=== PATIENT | female | born 2000 | race Caucasian/White ===

== ENCOUNTER 2022-06-13 13:33 | Inpatient (IN) ==
[2022-06-15] MEDS ORDERED: OXYTOCIN 30 UNITS/500 ML BAG IV PRN ×3 (08:49→17:32)
[2022-06-15] MEDS ORDERED: LIDOCAINE 1% LOCAL 20 ML VIAL INFIL PRN (08:49)
--- NOTE | 2022-06-15 08:49 | History & Physical Report ---
Date of Service June 15, 2022 Assessment & Plan (1) 40 weeks gestation of : Plan: Admit, routine labs, third trimester HIV and syphilis ordered Misoprostol 25 mcg sublingual every 4 hours Plan to AROM after, epidural if patient request Anticipate spontaneous vaginal delivery (2) Anxiety and depression: Plan: Well-controlled on Wellbutrin and Lexapro (3) Asthma affecting in third trimester: Plan: Albuterol inhaler as needed (4) ADHD: (5) Marijuana use during : Plan: Last use over 30 days, urine toxicology ordered today (6) Abnormal ultrasound: Plan: Mild urinary tract dilation bilaterally 4 mm Peds to follow Admission and Anticipated Discharge Date Admission Date: June 15, 2022 History of Present Illness Chief Complaint: IOL Primary Care Provider: Edson Carlisle MD Patient is a 21-year-old G1, P0 at 40 weeks and 2 days dated by last menstrual period consistent with 11-week ultrasound who presents to labor and delivery for induction of labor for postdates. Upon presentation she denies leaking of fluid or vaginal bleeding. +ctx. Notes good movement. Denies headache, blurry vision, right upper quadrant epigastric pain. Otherwise feeling well Patient is manages the [facility]. She has a history of asthma, albuterol inhaler as needed, anxiety and depression currently on Le xapro and Wellbutrin. Also ADHD, was on Adderall early during . She is currently on Lexapro 10 mg daily, Wellbutrin 75 mg daily. She also has a use of medical marijuana during . Has noted used for over 30 days per patient Patient also saw maternal- medicine for bilateral pyelectasis left 4.9 mm and right 4 mm. Repeat ultrasound showed mild urinary tract dilation at 4 mm bilaterally, when she saw [facility]. Allergies Allergy/AdvReac Type Severity Reaction Status Date / Time No Known Allergies Allergy Unverified 09/12/11 11:49 Home Medications Medication Instructions Recorded Confirmed Type ONDANSETRON (ZOFRAN ODT) 4 mg sublingual Q6 PRN ##20 07/17/12 Rx Patient History Social History Smoking Status: Never smoker Second Hand Exposure: Yes (Grandparents); Tobacco Cessation Education Requested by Patient: No Hx Alcohol Use: No Hx Substance Use: No (Medical marijuana card) Preferred Language: Senegalese Communication Ability: Effective Flight Information Expediter Required: No Beliefs That Will Affect Care: None marital status: Single Current Living Situation Comment: Lives with mother and Binh Feels Safe at Home: Yes Safety Concerns: Feels Safe At This Time Assistive Devices: None OB History [employer] L[employer] SC[employer]ER History See record Review of Systems All systems reviewed & are unremarkable except as noted in HPI & below Physical Exam Constitutional: WD/WN, vitals as above Respiratory: normal respiratory effort, lungs clear to auscultation Cardiovascular: RRR, no murmur, no edema Gastrointestinal (Abdomen): normal bowel sounds, soft, nontender, no hepatosplenomegaly gravid Genitourinary: no vaginal lesions, no adnexal mass OB Exam Abdomen: + heart tones and + vertex cx: 2.5/60/-3, soft anterior Results & Data Vital Signs (Past 12 Hours) Vital Signs Temp Pulse Resp BP 06/15/22 08:10 36.8 C 98 H 16 136/88 06/15/22 07:56 98 H 136/88 Monitoring External Monitor Baseline 130, moderate variability, positive accelerations no decelerations, category 1 tracing Tocodynamometer Irritability
[2022-06-15] MEDS: miSOPROStoL 25 MCG TAB SL SCH ×2 (09:14→13:17)
[2022-06-15 09:42] LABS: Hematocrit (blood only) 36.2 % (37.0-47.0); Hemoglobin 12.2 g/dl (12.0-16.0); Mean Corpuscular Hgb Conc 33.7 g/dL (32.0-36.0); Mean Platelet Volume 11.6 fL (9.4-12.4); Platelet Count 319 K/uL (130-400); RDW Coefficient of Variation 13.7 % (11.5-14.5); RDW Standard Deviation 42.1 fL (36.4-46.3); Red Blood Count 4.21 M/uL (4.20-5.40); White Blood Count 15.01 K/ul (4.8-10.8)
[2022-06-15 10:39] LABS: Amphetamines+Metham, Urine Neg (Neg); Barbiturates, Urine Neg (Neg); Benzodiazepine, Urine Neg (Neg); Cocaine, Urine Neg (Neg); MDMA (Ecstacy), Urine Neg (Neg); Methadone, Urine Neg (Neg); Opiate, Urine Neg (Neg); Phencyclidine, Urine Neg (Neg)
[2022-06-15] MEDS: LACTATED RINGER'S 1,000 ML IV PRN ×2 (13:41→15:17)
[2022-06-15] MEDS ORDERED: BUPIVACAINE 0.25% PF 30 ML VIAL ONE (13:44)
[2022-06-15] MEDS ORDERED: SODIUM CHLORIDE 0.9% PF INJ 10 ML VIAL ONE (13:44)
[2022-06-15] MEDS ORDERED: LIDOCAINE 2%/EPINEPHRINE 1:200,000 20 ML PF ONE (13:44)
[2022-06-15] MEDS ORDERED: fentaNYL citrate PF 100 MCG/2 ML VIAL ONE (13:44)
[2022-06-15] MEDS ORDERED: ePHEDrine sulfate 50 MG/ML AMP ONE (13:44)
[2022-06-15] MEDS ORDERED: fentaNYL 2MCG/ML ROPIVACAINE 1.25MG/ML 100 ML BAG EPI ONE (13:45)
--- NOTE | 2022-06-15 13:45 | Labor Progress Brief Note ---
Date of Service June 15, 2022 Subjective Patient is starting to get uncomfortable with contractions, she recently received second dose of Cytotec 25 mcg sublingual Assessment & Plan (1) 40 weeks gestation of : Plan: Misoprostol 25 mcg x2 doses Plan to start oxytocin 1 hour after Cytotec, if contractions space out. epidural if patient request Anticipate spontaneous vaginal delivery (2) Anxiety and depression: Plan: Well-controlled on Wellbutrin and Lexapro (3) Asthma affecting in third trimester: Plan: Albuterol inhaler as needed (4) ADHD: (5) Marijuana use during : Plan: Last use over 30 days, urine toxicology ordered today (6) Abnormal ultrasound: Plan: Mild urinary tract dilation bilaterally 4 mm Peds to follow Admission and Anticipated Discharge Date Admission Date: June 15, 2022 Physical Exam Genitourinary: heart tracing: Baseline 130, moderate variability, positive accelerations, 1 variable decelerations, category 1 tracing Tocometer: Contractions every 2 minutes Cervix: 3-4/90/-3 AROM performed with scant clear fluid, IUPC was placed in anticipation of starting oxytocin, no cord felt, no complications Results & Data Vital Signs (Past 12 Hours) Vital Signs Temp Pulse Resp BP 06/15/22 08:10 36.8 C 98 H 16 136/88 06/15/22 13:31 83 135/80 06/15/22 12:39 73 128/89 06/15/22 11:49 65 125/89 06/15/22 08:00 18 06/15/22 08:00 36.8 C 18 06/15/22 07:56 98 H 136/88
[2022-06-15] MEDS ORDERED: ePHEDrine sulfate 50 MG/ML AMP IV PRN (14:09)
[2022-06-15] MEDS ORDERED: NALBUPHINE HCL INJ 10 MG/ML AMP IV PRN (14:09)
[2022-06-15] MEDS ORDERED: fentaNYL 2MCG/ML ROPIVACAINE 1.25MG/ML 100 ML BAG EPI PRN (14:09)
[2022-06-15] MEDS ORDERED: PROMETHAZINE HCL 6.25 MG in SODIUM CHLORIDE 0.9% 50 ML IV PRN (14:09)
[2022-06-15] MEDS ORDERED: diphenhydrAMINE 50 MG/ML VIAL IV PRN (14:09)
[2022-06-15] MEDS ORDERED: ONDANSETRON INJ 2 MG/ML 2 ML VIAL IV PRN (14:09)
[2022-06-15] MEDS ORDERED: NALOXONE HCL 0.4 MG/1 ML VIAL/CARP IV PRN (14:09)
[2022-06-15] MEDS ORDERED: NALOXONE HCL 1 MG in SODIUM CHLORIDE 0.9% 1000ML 1,000 ML IV PRN (14:09)
--- NOTE | 2022-06-15 14:10 | Anesthesiology Consultation ---
Date of Service June 15, 2022 Assessment & Plan Chart Review Chart Review: Patient NOT seen in Pre Admission Testing and Acceptable Risk for Labor Epidural Consults Requested none ASA ASA2 Proposed Anesthesia Anesthesia Type: Labor Epidural Risk / Benefits Reviewed With: PT / POA / Parent / Guardian, Accepts Plan and Informed Consent Obtained History Height/Weight Height: 5 ft 10 in Weight: 93.44 kg Allergies Allergy/AdvReac Type Severity Reaction Status Date / Time No Known Allergies Allergy Unverified 09/12/11 11:49 Medications Home Medications Medication Instructions Recorded Confirmed Last Taken ONDANSETRON (ZOFRAN ODT) 4 mg sublingual Q6 PRN Acid Reflux 06/15/22 06/15/22 Unknown bupropion HCl 75 mg tablet 75 mg PO DAILY 06/15/22 06/15/22 06/14/22 09:00 escitalopram oxalate 10 mg tablet 10 mg PO DAILY 06/15/22 06/15/22 06/14/22 09:00 (Lexapro) prenat.vits,bubba,iwk-ssav-xmmgm 1 tab PO DAILY 06/15/22 06/15/22 06/14/22 09:00 Active Medications Generic Name Dose Route Start Last Admin Trade Name Freq PRN Reason Stop Dose Admin Lactated Ringer's 1,000 mls @ 125 mls/hr 06/15/22 08:49 06/15/22 13:41 Lr IV 06/17/22 08:48 999 mls/hr .Q8H PRN Administration L&D Protocol Protocol Misoprostol 25 mcg 06/15/22 09:05 06/15/22 13:17 Misoprostol 25 Mcg Tab SL 07/15/22 09:04 25 mcg Q4 OZZY Administration Exercise / Class Metabolic Activity II 4-5 Yardwork/Stairs/Walk up hill Past Anesthesia History No Hx of Anesthesia Complications and No Family Hx of Anesthesia Complications History of PONV No Hx of PONV and No Hx of Motion Sickness Social History Smoking Status: Never smoker Hx Alcohol Use: No Hx Substance Use: No (Medical marijuana card) substance use type: does not use Last Used Substance: Unknown Last Used Substance Other:: End april Physical Exam Vital Signs Last Vital Signs Temp 36.8 C 06/15/22 08:10 Pulse 66 06/15/22 14:08 Resp 16 06/15/22 08:10 BP 129/67 06/15/22 14:08 Pulse Ox 100 06/15/22 14:08 ENMT Mouth: no dentition abnormality Thyromental Distance: > or= 3.5 Finger Breadths Mallampati Class: II Neck normal visual inspection Respiratory normal respiratory effort Auscultation: lungs clear to auscultation bilaterally Cardiovascular Rate/Rhythm: regular rate and regular rhythm Psychiatric Orientation: alert Testing Laboratory Results 06/15/22 09:16
--- NOTE | 2022-06-15 17:01 | Labor Progress Brief Note ---
Date of Service June 15, 2022 Subjective Patient more uncomfortable with contractions, has epidural in place Assessment & Plan (1) 40 weeks gestation of : Plan: Anticipate spontaneous vaginal delivery (2) Anxiety and depression: Plan: Well-controlled on Wellbutrin and Lexapro (3) Asthma affecting in third trimester: Plan: Albuterol inhaler as needed (4) ADHD: (5) Marijuana use during : Plan: Last use over 30 days, urine toxicology ordered today (6) Abnormal ultrasound: Plan: Mild urinary tract dilation bilaterally 4 mm Peds to follow Admission and Anticipated Discharge Date Admission Date: June 15, 2022 Physical Exam Physical Exam: heart tracing: Baseline, hard to evaluate approximately 1 30-1 40, moderate variability, positive accelerations, variable decelerations, category 2 tracing Tocometer: Contractions every 2 minutes, oxytocin 2 milliunits/h Genitourinary: Cervix: 10/100/-2 Results & Data Vital Signs (Past 12 Hours) Vital Signs Temp Pulse Resp BP Pulse Ox 06/15/22 08:10 36.8 C 98 H 16 136/88 06/15/22 16:58 92 H 100 06/15/22 16:53 94 H 148/86 H 100 06/15/22 16:52 119 H 90 06/15/22 16:48 114 H 100 06/15/22 16:43 112 H 100 06/15/22 16:38 87 83 L 06/15/22 16:36 98 H 92 06/15/22 16:33 71 100 06/15/22 16:30 71 90 06/15/22 16:28 65 96 06/15/22 16:25 99 H 88 L 06/15/22 16:23 68 122/67 100 06/15/22 16:18 72 100 06/15/22 16:13 75 100 06/15/22 16:08 100 06/15/22 16:08 81 06/15/22 16:08 74 121/79 06/15/22 16:04 102 H 91 06/15/22 16:03 74 100 06/15/22 16:00 18 06/15/22 16:00 36.8 C 18 06/15/22 14:30 16 06/15/22 14:30 36.8 C 16 06/15/22 15:58 76 100 06/15/22 15:53 75 122/79 100 06/15/22 15:51 86 85 L 06/15/22 15:48 77 100 06/15/22 15:43 86 100 06/15/22 15:38 100 06/15/22 15:38 81 06/15/22 15:38 78 119/60 06/15/22 15:33 84 100 06/15/22 15:28 91 H 88 L 06/15/22 15:25 141 H 121/58 L 06/15/22 15:23 98 H 99 06/15/22 15:18 71 100 06/15/22 15:13 99 H 100 06/15/22 15:08 97 06/15/22 15:08 107 H 06/15/22 15:08 115 H 120/65 91 06/15/22 15:03 77 100 06/15/22 14:58 79 100 06/15/22 14:53 82 119/67 100 06/15/22 14:48 88 122/58 L 100 06/15/22 14:45 111 H 142/71 H 06/15/22 14:43 118 H 100 06/15/22 14:42 121 H 106/60 06/15/22 14:38 90 100 06/15/22 14:37 82 116/62 06/15/22 14:35 74 119/73 06/15/22 14:33 70 119/67 100 06/15/22 14:31 75 120/71 06/15/22 14:29 63 123/66 92 06/15/22 14:28 100 06/15/22 14:28 70 06/15/22 14:28 126/68 06/15/22 14:28 81 123/66 06/15/22 14:25 65 134/82 06/15/22 14:24 72 94 06/15/22 14:23 66 126/72 100 06/15/22 14:22 67 128/75 06/15/22 14:20 75 128/73 06/15/22 14:19 72 134/63 06/15/22 14:18 100 06/15/22 14:18 67 06/15/22 14:17 73 89 L 06/15/22 14:18 74 131/67 06/15/22 14:13 67 100 06/15/22 14:10 67 91 06/15/22 14:08 66 129/67 100 06/15/22 14:03 100 06/15/22 14:03 68 06/15/22 14:03 80 90 06/15/22 13:58 70 100 06/15/22 13:53 98 06/15/22 13:53 69 06/15/22 13:54 66 90 06/15/22 13:53 68 122/92 06/15/22 13:31 36.8 C 83 135/80 06/15/22 12:39 73 128/89 06/15/22 11:49 65 125/89 06/15/22 08:00 18 06/15/22 08:00 36.8 C 18 06/15/22 07:56 98 H 136/88
[2022-06-15] MEDS ORDERED: BENZOCAINE 20% AER SPR 82.5 GM CAN EXT PRN (17:32)
[2022-06-15] MEDS ORDERED: bisacodyL 10 MG SUPP PR PRN (17:32)
[2022-06-15] MEDS ORDERED: ACETAMINOPHEN 325 MG TAB PO PRN (17:32)
[2022-06-15] MEDS ORDERED: HYDROCORTISONE ACETATE 25 MG SUPP PR PRN (17:32)
[2022-06-15] MEDS ORDERED: DIPHTHERIA/TETANUS/PERTUSSIS 0.5mL SYR/VIAL (Age 7+yrs) IM ONE (17:32)
--- NOTE | 2022-06-15 17:42 | Delivery Summary ---
Vaginal Delivery Summary Date of Service June 15, 2022 Vaginal Delivery Summary Delivery Note History synopsis: PAtient admitted for IOL for post dates. Started on misoprostol 25mcg SL x2 doses, AROm then pit. Got epidural and went from 4 cm to complete. Pushed with nursing staff and called for delivery.. Delivery Summary: Patient was placed in the dorsal lithotomy position. She was prepped and draped in the usual sterile fashion. Upon maternal pushing the head was delivered atr aumatically followed by the anterior shoulders, posterior shoulders then the remainder of the infants body. The was immediately placed on mother's abdomen, dried and stimulated. Delayed cord clamping for 60 seconds was performed. The infants mouth and nose were bulb suctioned by nursing staff. A male infant was delivered at 1725 with large gush of blood. Weight pending, with APGARS of 8 at 1 minute and 9 at 5 minutes. The was handed off to the awaiting nursing staff. Cord blood gases were not obtained. The placenta delivered intact with three vessel cord at 1725 (was in vagina and noted large clot behind placenta, possible abruption?). Placenta was sent to pathology. Thirty units of Pitocin were added to the IV fluid and allowed to run freely. Uterine massage was per formed until uterus was deemed firm. Upon inspection of the perineum, vagina and cervix were intact. Noted hemostatic bilateral hymenal laceration. Not repaired. Upon re-inspection the patient was hemostatic. Uterus again massaged and found to be firm. Needle and sponge counts were correct. Patient was stable and allowed to recover in L&D room. was stable and remained in room with mother in the labor and delivery unit. EBL 200 mls
--- NOTE | 2022-06-15 19:31 | Anesthesia Procedure Note ---
Date of Service June 15, 2022 Anesthesia Post Epidural Note Vital Signs Vital Signs: Temp Pulse Resp BP Pulse Ox 37.2 C 91 H 18 118/75 100 06/15/22 18:30 06/15/22 19:23 06/15/22 16:00 06/15/22 19:23 06/15/22 17:23 Pain Intensity Abdomen: Pain Intensity: 0 Notes Mental Status: alert / awake / arousable Nausea / Vomiting: adequately controlled Pain: adequately controlled Airway Patency, RR, SpO2: stable & adequate BP & HR: stable & adequate Hydration State: stable & adequate Neuraxial Anesthesia: was administered and sensory block is resolving Anesthetic Complications: no major complications apparent and Pt Satisfied with anesthetic care Epidural: Removed without complications and With tip intact
[2022-06-15] MEDS: DOCUSATE SODIUM 100 MG CAP PO SCH (21:29)
[2022-06-16] MEDS: IBUPROFEN 600 MG TAB PO PRN ×3 (01:59→20:38)
[2022-06-16 07:23] LABS: Hematocrit (blood only) 30.9 % (37.0-47.0); Hemoglobin 10.4 g/dl (12.0-16.0); Mean Corpuscular Hgb Conc 33.7 g/dL (32.0-36.0); Mean Corpuscular Volume 86.1 fL (80.0-100.0); Platelet Count 285 K/uL (130-400); RDW Coefficient of Variation 13.8 % (11.5-14.5); RDW Standard Deviation 43.4 fL (36.4-46.3); Red Blood Count 3.59 M/uL (4.20-5.40)
[2022-06-16] MEDS: DOCUSATE SODIUM 100 MG CAP PO SCH ×2 (08:07→20:38)
[2022-06-16] MEDS: PRENATAL VITAMIN 1 TAB PO SCH (08:07)
[2022-06-16] MEDS: FERROUS SULFATE 325 MG TAB PO SCH (08:08)
--- NOTE | 2022-06-16 08:29 | Obstetrical Progress Note ---
Date of Service June 16, 2022 Assessment & Plan Admission and Anticipated Discharge Date Admission Date: June 15, 2022 Subjective Patient is seen and examined. She feels well, no complaints. Ambulating without dizziness Voiding without difficulty Tolerating regular diet with out N&V Bleeding is minimal No fever/ chills/ CP/ SOB/ N&V/ Leg pain Breast feeding without problems Vital Signs Temp Pulse Resp BP Pulse Ox O2 Del Method 06/16/22 04:30 36.7 C 66 16 115/68 98 Room Air 06/16/22 00:25 36.7 C 66 18 98/61 L 98 Room Air 06/15/22 21:10 36.9 C 82 16 119/74 98 Room Air Lab Results 06/15/22 06/15/22 06/15/22 Range/Units 09:00 09:16 09:16 WBC 15.01 H (4.8-10.8) K/ul RBC 4.21 (4.20-5.40) M/uL Hgb 12.2 (12.0-16.0) g/dl Hct 36.2 L (37.0-47.0) % MCV 86.0 (80.0-100.0) fL MCH 29.0 (25.0-34.0) pg MCHC 33.7 (32.0-36.0) g/dL RDW Std Deviation 42.1 (36.4-46.3) fL RDW Coeff of Johnnie 13.7 (11.5-14.5) % Plt Count 319 (130-400) K/uL MPV 11.6 (9.4-12.4) fL Urine Opiates Screen Neg (Neg) Ur Methadone, Qual Neg (Neg) Urine Barbiturates Neg (Neg) Ur Phencyclidine (PCP) Neg (Neg) U Amphetamin/Meth Scrn Neg (Neg) MDMA (Ecstasy) Screen Neg (Neg) U Benzodiazepines Scrn Neg (Neg) Ur Cocaine Metabolite Neg (Neg) U Marijuana (THC) Screen Pos H (Neg) RPR Nonreactive (Nonreactive) SARS-CoV-2, RNA, NAAT (NEGATIVE) 06/15/22 06/16/22 Range/Units Unknown 06:49 WBC 18.10 H (4.8-10.8) K/ul RBC 3.59 L (4.20-5.40) M/uL Hgb 10.4 L (12.0-16.0) g/dl Hct 30.9 L (37.0-47.0) % MCV 86.1 (80.0-100.0) fL MCH 29.0 (25.0-34.0) pg MCHC 33.7 (32.0-36.0) g/dL RDW Std Deviation 43.4 (36.4-46.3) fL RDW Coeff of Johnnie 13.8 (11.5-14.5) % Plt Count 285 (130-400) K/uL MPV 12.0 (9.4-12.4) fL Urine Opiates Screen (Neg) Ur Methadone, Qual (Neg) Urine Barbiturates (Neg) Ur Phencyclidine (PCP) (Neg) U Amphetamin/Meth Scrn (Neg) MDMA (Ecstasy) Screen (Neg) U Benzodiazepines Scrn (Neg) Ur Cocaine Metabolite (Neg) U Marijuana (THC) Screen (Neg) RPR (Nonreactive) SARS-CoV-2, RNA, NAAT NEGATIVE (NEGATIVE) PE: General: Alert, orientedx3, NAD Abd: soft, NT, fundus firm, below Umbilicus Perineum intact, Lochia rubra minimal Ext; NT, no edema AP: [] yo s/p , ppd# [] VSS Afebrile doing well Continue routine care All questions were answered D/C home [] Results & Data Vital Signs (Past 12 Hours) Vital Signs Temp Pulse Resp BP Pulse Ox O2 Del Method 06/16/22 04:30 36.7 C 66 16 115/68 98 Room Air 06/16/22 00:25 36.7 C 66 18 98/61 L 98 Room Air 06/15/22 21:10 36.9 C 82 16 119/74 98 Room Air
[2022-06-16] MEDS ORDERED: bisacodyL 5 MG TABEC PO SCH (20:00)
[2022-06-16] MEDS: buPROPion HCl 75 MG TABLET PO SCH (20:41)
[2022-06-16] MEDS: ESCITALOPRAM OXALATE 10 MG TAB PO SCH (20:42)
[2022-06-17 07:17] LABS: Basophils % (auto) 0.7 %; Eosinophils # (auto) 0.27 K/uL (0-0.50); Eosinophils % (auto) 1.8 %; Hematocrit (blood only) 31.5 % (37.0-47.0); Hemoglobin 10.4 g/dl (12.0-16.0); Immature Granulocytes % (auto) 1.3 %; Lymphocytes # (auto) 3.12 K/uL (1.2-3.4); Lymphocytes % (auto) 20.6 %; Mean Corpuscular Hemoglobin 29.1 pg (25.0-34.0); Mean Corpuscular Volume 88.2 fL (80.0-100.0); Mean Platelet Volume 11.3 fL (9.4-12.4); Monocytes # (auto) 0.87 K/uL (0.11-0.59); Monocytes % (auto) 5.7 %; Neutrophils # (auto) 10.59 K/uL (1.40-6.50); Neutrophils % (auto) 69.9 %; Platelet Count 302 K/uL (130-400); RDW Coefficient of Variation 13.9 % (11.5-14.5); RDW Standard Deviation 44.4 fL (36.4-46.3); Red Blood Count 3.57 M/uL (4.20-5.40); White Blood Count 15.15 K/ul (4.8-10.8)
[2022-06-17] MEDS: PRENATAL VITAMIN 1 TAB PO SCH (08:41)
[2022-06-17] MEDS: ESCITALOPRAM OXALATE 10 MG TAB PO SCH (08:41)
[2022-06-17] MEDS: buPROPion HCl 75 MG TABLET PO SCH (08:41)
[2022-06-17] MEDS: FERROUS SULFATE 325 MG TAB PO SCH (08:41)
[2022-06-17] MEDS: DOCUSATE SODIUM 100 MG CAP PO SCH (08:41)
--- NOTE | 2022-06-17 10:37 | Obstetrical Progress Note ---
Date of Service June 17, 2022 Assessment & Plan Admission and Anticipated Discharge Date Admission Date: June 15, 2022 Subjective Patient is seen and examined. She feels well, no complaints. Ambulating without dizziness Voiding without difficulty Tolerating regular diet with out N&V Bleeding is minimal No fever/ chills/ CP/ SOB/ N&V/ Leg pain Breast feeding without problems Vital Signs Temp Pulse Resp BP O2 Del Method 06/17/22 08:00 36.7 C 70 18 117/72 Room Air 06/17/22 00:07 36.5 C 80 18 122/74 Room Air 06/16/22 19:35 37.1 C 99 H 18 120/80 Room Air 06/16/22 16:30 36.8 C 84 20 120/81 Room Air 06/16/22 13:30 36.6 C 90 19 125/85 Room Air Lab Results 06/15/22 06/15/22 06/15/22 Range/Units 09:00 09:16 09:16 WBC 15.01 H (4.8-10.8) K/ul RBC 4.21 (4.20-5.40) M/uL Hgb 12.2 (12.0-16.0) g/dl Hct 36.2 L (37.0-47.0) % MCV 86.0 (80.0-100.0) fL MCH 29.0 (25.0-34.0) pg MCHC 33.7 (32.0-36.0) g/dL RDW Std Deviation 42.1 (36.4-46.3) fL RDW Coeff of Johnnie 13.7 (11.5-14.5) % Plt Count 319 (130-400) K/uL MPV 11.6 (9.4-12.4) fL Immature Gran % (Auto) % Neut % (Auto) % Lymph % (Auto) % Talbot % (Auto) % Eos % (Auto) % Baso % (Auto) % Neut # (Auto) (1.40-6.50) K/uL Lymph # (Auto) (1.2-3.4) K/uL Talbot # (Auto) (0.11-0.59) K/uL Eos # (Auto) (0-0.50) K/uL Baso # (Auto) (0-0.2) K/uL Immature Gran # (Auto) (0.01-0.20) K/uL Urine Opiates Screen Neg (Neg) Ur Methadone, Qual Neg (Neg) Urine Barbiturates Neg (Neg) Ur Phencyclidine (PCP) Neg (Neg) U Amphetamin/Meth Scrn Neg (Neg) MDMA (Ecstasy) Screen Neg (Neg) U Benzodiazepines Scrn Neg (Neg) Ur Cocaine Metabolite Neg (Neg) U Marijuana (THC) Screen Pos H (Neg) RPR Nonreactive (Nonreactive) HIV (1&2) Ag & Ab Conf (NON-REACTIVE) SARS-CoV-2, RNA, NAAT (NEGATIVE) 06/15/22 06/15/22 06/16/22 Range/Units 09:16 Unknown 06:49 WBC 18.10 H (4.8-10.8) K/ul RBC 3.59 L (4.20-5.40) M/uL Hgb 10.4 L (12.0-16.0) g/dl Hct 30.9 L (37.0-47.0) % MCV 86.1 (80.0-100.0) fL MCH 29.0 (25.0-34.0) pg MCHC 33.7 (32.0-36.0) g/dL RDW Std Deviation 43.4 (36.4-46.3) fL RDW Coeff of Johnnie 13.8 (11.5-14.5) % Plt Count 285 (130-400) K/uL MPV 12.0 (9.4-12.4) fL Immature Gran % (Auto) % Neut % (Auto) % Lymph % (Auto) % Talbot % (Auto) % Eos % (Auto) % Baso % (Auto) % Neut # (Auto) (1.40-6.50) K/uL Lymph # (Auto) (1.2-3.4) K/uL Talbot # (Auto) (0.11-0.59) K/uL Eos # (Auto) (0-0.50) K/uL Baso # (Auto) (0-0.2) K/uL Immature Gran # (Auto) (0.01-0.20) K/uL Urine Opiates Screen (Neg) Ur Methadone, Qual (Neg) Urine Barbiturates (Neg) Ur Phencyclidine (PCP) (Neg) U Amphetamin/Meth Scrn (Neg) MDMA (Ecstasy) Screen (Neg) U Benzodiazepines Scrn (Neg) Ur Cocaine Metabolite (Neg) U Marijuana (THC) Screen (Neg) RPR (Nonreactive) HIV (1&2) Ag & Ab Conf NON-REACTIVE (NON-REACTIVE) SARS-CoV-2, RNA, NAAT NEGATIVE (NEGATIVE) 06/17/22 Range/Units 07:02 WBC 15.15 H (4.8-10.8) K/ul RBC 3.57 L (4.20-5.40) M/uL Hgb 10.4 L (12.0-16.0) g/dl Hct 31.5 L (37.0-47.0) % MCV 88.2 (80.0-100.0) fL MCH 29.1 (25.0-34.0) pg MCHC 33.0 (32.0-36.0) g/dL RDW Std Deviation 44.4 (36.4-46.3) fL RDW Coeff of Johnnie 13.9 (11.5-14.5) % Plt Count 302 (130-400) K/uL MPV 11.3 (9.4-12.4) fL Immature Gran % (Auto) 1.3 % Neut % (Auto) 69.9 % Lymph % (Auto) 20.6 % Talbot % (Auto) 5.7 % Eos % (Auto) 1.8 % Baso % (Auto) 0.7 % Neut # (Auto) 10.59 H (1.40-6.50) K/uL Lymph # (Auto) 3.12 (1.2-3.4) K/uL Talbot # (Auto) 0.87 H (0.11-0.59) K/uL Eos # (Auto) 0.27 (0-0.50) K/uL Baso # (Auto) 0.10 (0-0.2) K/uL Immature Gran # (Auto) 0.20 (0.01-0.20) K/uL Urine Opiates Screen (Neg) Ur Methadone, Qual (Neg) Urine Barbiturates (Neg) Ur Phencyclidine (PCP) (Neg) U Amphetamin/Meth Scrn (Neg) MDMA (Ecstasy) Screen (Neg) U Benzodiazepines Scrn (Neg) Ur Cocaine Metabolite (Neg) U Marijuana (THC) Screen (Neg) RPR (Nonreactive) HIV (1&2) Ag & Ab Conf (NON-REACTIVE) SARS-CoV-2, RNA, NAAT (NEGATIVE) PE: General: Alert, orientedx3, NAD Abd: soft, NT, fundus firm, below Umbilicus Perineum intact, Lochia rubra minimal Ext; NT, no edema AP: 21 yo s/p , ppd# 2 VSS Afebrile doing well Continue routine care All questions were answered Discussed when to call D/C home , f/u in office Results & Data Vital Signs (Past 12 Hours) Vital Signs Temp Pulse Resp BP O2 Del Method 06/17/22 08:00 36.7 C 70 18 117/72 Room Air 06/17/22 00:07 36.5 C 80 18 122/74 Room Air
[2022-06-18 06:27] LABS: Marijuana Quant, GCMS Urine 35 ng/mL (<5)
== END 2022-06-17 12:25 | disposition home health service (06) | DRG 806 ==
LOC: 4S1 06-15 07:48 → 4E2 06-15 20:52